=== PATIENT | female | born 2000 | race Caucasian/White ===

== ENCOUNTER 2019-10-17 14:31 | Emergency (ER) | payer SELFPAY ==
[2019-10-17] MEDS ORDERED: ACETAMINOPHEN 325 MG TABLET PO ONE (15:18)
[2019-10-17 15:48] LABS: ABSOLUTE BASOPHILS # (AUTO) 0.1 10^3/uL (0.0-0.2); ABSOLUTE EOSINOPHILS # (AUTO) 0.2 10^3/uL (0.0-0.6); ABSOLUTE LYMPHOCYTES (AUTO) 1.9 10^3/uL (0.5-4.7); ABSOLUTE MONOCYTES (AUTO) 0.6 10^3/uL (0.1-1.4); ABSOLUTE NEUT (AUTO) 6.4 10^3/uL (1.7-8.2); BASOPHILS % (AUTO) 0.7 % (0-2); EOSINOPHILS % (AUTO) 2.1 % (0-6); HEMATOCRIT 40.6 % (36.0-47.0); HEMOGLOBIN 13.8 g/dL (12.0-15.5); LYMPHOCYTES % (AUTO) 20.9 % (13-45); MEAN CORPUSCULAR HEMOGLOBIN 29.3 pg (27.0-33.4); MEAN CORPUSCULAR HGB CONC 33.9 g/dL (32.0-36.0); MEAN CORPUSCULAR VOLUME 87 fl (80-97); MONOCYTES % (AUTO) 6.8 % (3-13); PLATELET COUNT 225 10^3/uL (150-450); SEGMENTED NEUTROPHILS % (AUTO) 69.5 % (42-78); TOTAL CELLS COUNTED % (AUTO) 100 %; WHITE BLOOD COUNT 9.2 10^3/uL (4.0-10.5)
[2019-10-17 16:09] LABS: ALBUMIN 4.5 g/dL (3.5-5.0); ALKALINE PHOSPHATASE 44 U/L (38-126); ANION GAP 8 (5-19); ASPARTATE AMINO TRANSFERASE 22 U/L (14-36); BILIRUBIN,DIRECT 0.2 mg/dL (0.0-0.4); BILIRUBIN,TOTAL 0.4 mg/dL (0.2-1.3); BLOOD UREA NITROGEN 9 mg/dL (7-20); CALCIUM 9.3 mg/dL (8.4-10.2); CARBON DIOXIDE 25 mmol/L (22-30); CHLORIDE 104 mmol/L (98-107); POTASSIUM 4.1 mmol/L (3.6-5.0); TOTAL PROTEIN 7.4 g/dL (6.3-8.2)
--- NOTE | 2019-10-17 16:12 | RADIOLOGY REPORT (SQ) ---
EXAM DESCRIPTION: U/S OB TRANSVAG W/DOPPLER IMAGES COMPLETED DATE/TIME: 10/17/2019 3:59 pm REASON FOR STUDY: abdominal cramping LMP 07/18/2019 COMPARISON: None. TECHNIQUE: Transvaginal static and realtime grayscale images acquired of the pelvis. Additional rosa cted spectral and color Doppler images recorded. All images stored on PACs. bHCG: Pending. CLINICAL DATES: ARIELLE: 05/23/2020. EGA: 8 weeks 5 days LIMITATIONS: None. FINDINGS: FETUS: Single Living intrauterine . ULTRASOUND EGA: 9 weeks 0 days ULTRASOUND ARIELLE: 05/21/2020 EFW: Not applicable less than 20 weeks. CRL: 2.3 cm FHR: 173 beats per minute. SURVEY: Too early to assess. AMNIOTIC FLUID: Adequate amount. PLACENTA: Not yet developed due to early gestation. SUBCHORIONIC BLEED: No. SIZE OF BLEED: Not applicable. UTERUS: The uterus measures 10.6 x 6.8 x 5.6 cm. No masses. No anomalies. CERVICAL LENGTH: 2.3 cm. Closed. RIGHT ADNEXA: The right ovary measures 3.2 x 2.1 x 2.1 cm. Normal ovary with normal vascular flow. No adnexal free fluid. No adnexal masses. LEFT ADNEXA: The left ovary measures 3.2 x 2.1 x 1.6 cm. Normal ovary with normal vascular flow. No adnexal free fluid. No adnexal masses. FREE FLUID: None. OTHER: No other significant finding. IMPRESSION: 1. LIVING INTRAUTERINE . EGA: 9 weeks 0 days Trimester of : First trimester - 0 to 13 weeks. TECHNICAL DOCUMENTATION: JOB ID: [id number] [employer]- All Rights Reserved Reading location - IP/workstation name: [email or web address]
[2019-10-17 16:13] LABS: APPEARANCE,URINE SLIGHTLY-CLOUDY; BILIRUBIN,URINE NEGATIVE (NEGATIVE); COLOR,URINE YELLOW; GLUCOSE, URINE NEGATIVE (NEGATIVE); KETONES,URINE NEGATIVE (NEGATIVE); LEUKOCYTE ESTERASE,URINE TRACE (NEGATIVE); NITRITE,URINE NEGATIVE (NEGATIVE); PROTEIN,URINE NEGATIVE (NEGATIVE); URINE SPECIFIC GRAVITY 1.023; UROBILINOGEN,URINE NEGATIVE mg/dL (<2.0)
[2019-10-17 16:28] LABS: GLUCOSE 50 mg/dL (75-110)
--- NOTE | 2019-10-17 17:04 | ER Document Report ---
ED GI/ - General Chief Complaint: Abdominal Pain Stated Complaint: ABDOMINAL CRAMPING Time Seen by Provider: 10/17/19 15:15 Primary Care Provider: [facility] [Provider Group] - Follow up in 3-5 days Notes: Patient is a 18-year-old female who presents the emergency department with a chief complaint of abdominal cramping. Patient is G1, P0. Patient states that her abdominal cramping has been going on for the past 3 days. Patient states that she is about 8 weeks . Denies any vaginal bleeding or vaginal discharge. Denies any dysuria. - Related Data Allergies/Adverse Reactions: No Known Allergies Allergy (Verified 10/17/19 15:23) Past Medical History - Social History Smoking Status: Never Smoker Frequency of alcohol use: None Family History: Reviewed & Not Pertinent Review of Systems - Review of Systems Notes: REVIEW OF SYSTEMS: CONSTITUTIONAL : Denies recent illness. Denies recent unintentional weight loss. Denies fever, chills, or sweats. EENT: Denies eye, ear, throat, or mouth pain, discharge, or symptoms. Denies nasal or sinus congestion. CARDIOVASCULAR: Denies chest pain. RESPIRATORY: Denies shortness of breath, cough, congestion, difficulty breathing, or wheezing. GASTROINTESTINAL: Denies nausea, vomiting, and diarrhea. Denies constipation. See HPI GENITOURINARY: Denies difficulty urinating, burning, blood in urine, urgency or frequency. FEMALE GENITOURINARY: See HPI. MUSCULOSKELETAL: Denies neck and back pain. Denies joint pain or swelling. SKIN: Denies rash, itchiness, or lesions HEMATOLOGIC : Denies easy bruising or bleeding. LYMPHATIC: Denies swollen, painful, enlarged glands. NEUROLOGICAL: Denies no numbness or tingling denies weakness. Denies headache. Denies altered mental status. Denies alteration in speech. PSYCHIATRIC: Denies stress, anxiety, alteration in sleep patterns, or depression. All other systems reviewed and negative. Physical Exam - Vital signs Vitals: Temp Pulse Resp BP Pulse Ox 98.5 F 90 16 114/67 99 10/17/19 14:37 10/17/19 14:37 10/17/19 14:37 10/17/19 14:37 10/17/19 14:37 - Notes Notes: PHYSICAL EXAMINATION: GENERAL: Appears well, healthy, well-nourished, no acute distress. HEAD: Normocephalic, atraumatic. EYES: PERRL, conjunctiva normal, all extraocular movements intact, sclera nonicteric ENT: Moist mucous membranes. NECK: Supple, no noticeable swelling, redness, rash. Normal range of motion. LUNGS: Equal breath sounds bilaterally and clear to auscultation. No wheezes rales or rhonchi. CARDIOVASCULAR: S1-S2, regular rate, regular rhythm. Radial pulses 2+, normal. ABDOMEN: Normoactive bowel sounds. Soft, mildly tender mid lower abdomen, no guarding, no rebound tenderness, and no masses palpated. EXTREMITIES: Normal strength and range of motion, no pitting or edema. No cyanosis. NEUROLOGICAL: Moves all extremities upon command. Strength 5/5 in all extremities. PSYCH: Normal mood, normal affect. SKIN: Warm, dry. No rash, lesions, ulcerations noted. Normal skin turgor. Course - Re-evaluation Re-evalutation: 10/17/19 17:46 Hematology is unremarkable. Chemistries show glucose is 50. Patient was given juice and her glucose went up to 101. Beta hCG is 209,070. This is consistent with her 9-week noted on her ultrasound. Patient has trace leukocytes noted in her urine. We will send her urine for culture. Patient was started on Keflex and she will follow-up with [facility]. I have a low suspicion for appendicitis. Patient is non-toxic in appearance. She is in agreement with this plan. Follow-up precautions were given. Verbal discharge instructions were given to the patient. They verbalized understanding. They are stable for discharge. - Vital Signs Vital signs: Temp Pulse Resp BP Pulse Ox 97.9 F 81 18 129/75 H 99 10/17/19 18:18 10/17/19 18:18 10/17/19 18:18 10/17/19 18:18 10/17/19 18:18 - Laboratory Result Diagrams: 10/17/19 15:30 10/17/19 15:30 Laboratory results interpreted by me: 10/17/19 10/17/19 15:25 15:30 Glucose 50 L Beta HCG, Quant 997808.00 H Ur Leukocyte Esterase TRACE H Discharge - Discharge Clinical Impression: Abdominal cramping Urinary tract infection Qualifiers: Urinary tract infection type: site unspecified Hematuria presence: without hematuria Qualified Code(s): N39.0 - Urinary tract infection, site not specified Condition: Stable Disposition: HOME, SELF-CARE Instructions: Urinary Tract Infection ([facility]) Additional Instructions: You were seen today in the emergency department for cramping during . You are being treated prophylactically for a urinary tract infection. Take your antibiotics as prescribed. Please do not place anything in your vagina. If you develop bleeding or have large clots, return to the emergency department. Please follow-up with [facility] in regards to this visit. You can take Tylenol 650 mg every 6 hours as needed for your cramping or pain. Do not take ibuprofen or naproxen or Aleve, or any NSAIDs during . Prescriptions: Cephalexin [Keflex] 500 mg PO BID #14 capsule Forms: Return to Work Referrals: [facility] [Provider Group] - Follow up in 3-5 days
[2019-10-17 18:21] VITALS: BP 129/75
== END 2019-10-17 18:19 | disposition home or self-care (01) ==
LOC: ER 14:31
DX: O23.41 Unspecified infection of urinary tract in pregnancy, first trimester (principal); O26.891 Other specified pregnancy related conditions, first trimester; R10.9 Unspecified abdominal pain; Z3A.09 9 weeks gestation of pregnancy
CPT/HCPCS: 36415; 76817; 80053; 81001; 82962; 83690; 84702; 85025; 86900; 86901; 87086; 87088; 87186; 93976; 99284